=== PATIENT | female | born 1985 | race African-American/Black ===

== ENCOUNTER 2016-09-22 10:36 | Day surgery (SDC) | payer BC, OTHER ==
[~2016-09-22] VITALS: Ht 160 cm; Wt 104.3 kg
[~2016-09-22 10:36] MED LIST: ENDOCET 5-3251 EACH PO; IBUPROFEN800 MG PO; ONE DAILY FOR1 EAC1 PO; PRENATAL TABLE1 EAC3 PO; PROZAC20 MG PO; YASMIN,OCELL1 TABLET PO; YAZ 28 TABLET1 EACH PO
[2016-09-22 11:00] VITALS: BP 129/66
[2016-09-22 11:27] LABS: HEMATOCRIT 32.9 % (36.0-46.0); MCH 24.8 PG (29.0-34.0); MCHC 31.3 G/DL (30.0-36.0); MCV 79.1 FL (83-99); MEAN PLAT.VOLUME 9.5 uM^3 (9.5-12.4); PLATELET COUNT 366 K/uL (156-360); RBC DIS.WIDTH-CV 16.7 % (11.8-14.6); RED BLOOD COUNT 4.16 M/uL (3.80-5.20); WHITE BLOOD COUNT 6.2 K/uL (4.1-10.2)
[2016-09-22 12:03] LABS: EOSINOPHIL (%) 0.8 % (0-5); EOSINOPHIL COUNT 0.1 K/uL (0-0.3); IMMATURE GRANULOCYTE (%) 0.2 % (0.0-0.7); LYMPHOCYTE COUNT 2.2 K/uL (1.0-2.8); MONOCYTE (%) 7.9 % (3-12); MONOCYTE COUNT 0.5 K/uL (0-0.8); NEUTROPHIL COUNT 3.4 K/uL (1.8-6.4)
[2016-09-22] MEDS ORDERED: NORCO 5/3251 TABLET PO (13:55)
[2016-09-22 15:05] VITALS: BP 125/77
[2016-09-22 15:56] VITALS: BP 127/75
== END 2016-09-22 16:01 | disposition home or self-care (01) ==
LOC: SDC 10:36
PROVIDERS: Obstetrics & Gynecology
PROC: 0UDB8ZX Extraction of Endometrium, Via Natural or Artificial Opening Endoscopic, Diagnostic (ICD-10-PCS; principal; 2016-09-22)
PROC: 0UB98ZZ Excision of Uterus, Via Natural or Artificial Opening Endoscopic (ICD-10-PCS; principal; 2016-09-22)
DX: N93.8 Other specified abnormal uterine and vaginal bleeding (principal); N84.0 Polyp of corpus uteri; Z87.42 Personal history of other diseases of the female genital tract; E66.01 Morbid (severe) obesity due to excess calories; Z68.43 Body mass index [BMI] 50.0-59.9, adult
CPT/HCPCS: 84702; 85025; 88305; J0131; J0330; J1100; J1885; J2250; J2405; J2765; J3010

== ENCOUNTER 2017-02-14 22:15 | Emergency (ER) | payer BC, OTHER ==
[~2017-02-14] VITALS: Ht 160 cm; Wt 118.8 kg
[~2017-02-14 22:15] MED LIST changes: +NORCO 5/3251 TABLET PO
[2017-02-14 22:20] VITALS: BP 164/78
[2017-02-14] MEDS ORDERED: AMOXICILLIN500 MG PO (22:55)
== END 2017-02-14 23:14 | disposition home or self-care (01) ==
LOC: EME 22:15
DX: O99.89 Other specified diseases and conditions complicating pregnancy, childbirth and the puerperium (principal); K08.89 Other specified disorders of teeth and supporting structures; Z3A.12 12 weeks gestation of pregnancy
CPT/HCPCS: 99281; 99284

== ENCOUNTER 2017-08-11 06:38 | Inpatient (IN) | payer OTHER ==
[~2017-08-11] VITALS: Ht 160 cm; Wt 139.2 kg
[2017-08-11] VITALS (8 sets, daily range): BP systolic 121–143; BP diastolic 57–90
[~2017-08-11 06:38] MED LIST changes: +AMOXICILLIN500 MG PO; +ASPIR 8181 M1 PO; +PRENATAL TABLE1 EACH PO; +VISTARIL25 MG PO
[2017-08-11 09:37] LABS: HEMATOCRIT 32.8 % (36.0-46.0); HEMOGLOBIN 10.5 G/DL (11.9-15.5); MCH 26.5 PG (29.0-34.0); MCV 82.8 FL (83-99); PLATELET COUNT 205 K/uL (156-360); RBC DIS.WIDTH-CV 14.6 % (11.8-14.6); RBC DIS.WIDTH-SD 44.2 % (39-53); RED BLOOD COUNT 3.96 M/uL (3.80-5.20); WHITE BLOOD COUNT 6.7 K/uL (4.1-10.2)
[2017-08-12 03:13] VITALS: BP 114/64
[2017-08-12 07:50] LABS: BASOPHIL (%) 0.4 % (0-1); EOSINOPHIL (%) 0.9 % (0-5); EOSINOPHIL COUNT 0.1 K/uL (0-0.3); HEMATOCRIT 31.8 % (36.0-46.0); HEMOGLOBIN 9.8 G/DL (11.9-15.5); IMMATURE GRANULOCYTE (%) 0.3 % (0.0-0.7); LYMPHOCYTE (%) 23.1 % (15-42); LYMPHOCYTE COUNT 1.7 K/uL (1.0-2.8); MCH 25.9 PG (29.0-34.0); MCHC 30.8 G/DL (30.0-36.0); MCV 84.1 FL (83-99); MONOCYTE COUNT 0.8 K/uL (0-0.8); NEUTROPHIL (%) 65.3 % (45-76); NEUTROPHIL COUNT 4.9 K/uL (1.8-6.4); PLATELET COUNT 225 K/uL (156-360); RBC DIS.WIDTH-CV 14.7 % (11.8-14.6); RBC DIS.WIDTH-SD 45.1 % (39-53); RED BLOOD COUNT 3.78 M/uL (3.80-5.20); WHITE BLOOD COUNT 7.5 K/uL (4.1-10.2)
[2017-08-12 19:18] VITALS: BP 124/87
[2017-08-12 22:31] VITALS: BP 129/67
[2017-08-13 02:43] VITALS: BP 125/67
[2017-08-13 07:51] VITALS: BP 138/84
[2017-08-13 09:30] VITALS: BP 136/86
[2017-08-13 11:21] VITALS: BP 142/86
[2017-08-13 15:03] VITALS: BP 138/79
[2017-08-14 07:13] VITALS: BP 128/66
[2017-08-14 10:42] VITALS: BP 146/77
[2017-08-14] MEDS ORDERED: IBUPROFEN800 MG PO (13:54)
[2017-08-14] MEDS ORDERED: ENDOCET 5-3251 EACH PO (13:54)
[2017-08-14] MEDS ORDERED: FERROUS SULFAT325 MG PO (13:54)
[2017-08-15] MEDS ORDERED: REGLAN10 MG PO (12:10)
[2017-08-15] MEDS ORDERED: FIORICET 50-301 EAC1 PO (12:10)
== END 2017-08-14 15:40 | disposition home or self-care (01) | DRG 765 ==
LOC: 2WEST 06:38 → 2SOUTH 08:14 → 2WEST 08-14 15:40
PROVIDERS: Obstetrics & Gynecology
PROC: 10D00Z1 Extraction of Products of Conception, Low, Open Approach (ICD-10-PCS; principal; 2017-08-11)
PROC: 0UB70ZZ Excision of Bilateral Fallopian Tubes, Open Approach (ICD-10-PCS; principal; 2017-08-11)
DX: O30.043 Twin pregnancy, dichorionic/diamniotic, third trimester (principal); O32.1XX1 Maternal care for breech presentation, fetus 1; O32.1XX2 Maternal care for breech presentation, fetus 2; O34.211 Maternal care for low transverse scar from previous cesarean delivery; O99.02 Anemia complicating childbirth; D62 Acute posthemorrhagic anemia; D50.9 Iron deficiency anemia, unspecified; O99.214 Obesity complicating childbirth; E66.01 Morbid (severe) obesity due to excess calories; Z68.41 Body mass index [BMI] 40.0-44.9, adult; Z30.2 Encounter for sterilization; Z37.2 Twins, both liveborn; Z3A.37 37 weeks gestation of pregnancy; Z80.1 Family history of malignant neoplasm of trachea, bronchus and lung; Z81.8 Family history of other mental and behavioral disorders; Z82.49 Family history of ischemic heart disease and other diseases of the circulatory system; Z83.3 Family history of diabetes mellitus
CPT/HCPCS: 85025; 85027; 86850; 86900; 86901; 88307; J0690; J2274; J7120

== ENCOUNTER 2017-08-15 09:44 | Emergency (ER) | payer BC, OTHER ==
[~2017-08-15] VITALS: Ht 160 cm; Wt 138.8 kg
[~2017-08-15 09:44] MED LIST changes: +FERROUS SULFAT325 MG PO
[2017-08-15 10:50] LABS: HEMATOCRIT 28.6 % (36.0-46.0); HEMOGLOBIN 9.1 G/DL (11.9-15.5); MCH 26.9 PG (29.0-34.0); MCHC 31.8 G/DL (30.0-36.0); MCV 84.6 FL (83-99); NRBC (%) 0.3 /100 WBC (0-0); PLATELET COUNT 221 K/uL (156-360); RBC DIS.WIDTH-CV 14.9 % (11.8-14.6); RBC DIS.WIDTH-SD 45.2 % (39-53); RED BLOOD COUNT 3.38 M/uL (3.80-5.20); WHITE BLOOD COUNT 7.2 K/uL (4.1-10.2)
[2017-08-15 11:02] LABS: CHLORIDE 112 mEq/L (99-109); POTASSIUM 3.9 mEq/L (3.7-5.4); SODIUM 139 mEq/L (136-147)
[2017-08-15 11:04] LABS: GLUCOSE 84 mg/dL (70-99); TOTAL PROTEIN 5.7 g/dL (6.4-8.3)
[2017-08-15 11:06] LABS: TOTAL BILIRUBIN 0.3 mg/dL (0.0-1.0)
[2017-08-15 11:07] LABS: ALKALINE PHOSPHATASE 103 IU/L (3-129)
[2017-08-15 11:08] LABS: CREATININE 0.6 mg/dL (0.6-1.3); GFR ESTIMATE (CALCULATED) > 59 mL/min/
[2017-08-15 11:09] LABS: AST (GOT) 25 IU/L (2-34); UREA NITROGEN (BUN) 11 mg/dL (9-23)
[2017-08-15 11:11] LABS: ALT (GPT) 25 IU/L (3-49)
[2017-08-15] MEDS ORDERED: FIORICET 50-301 EAC1 PO (12:10)
[2017-08-15] MEDS ORDERED: REGLAN10 MG PO (12:10)
[2017-08-15 13:25] VITALS: BP 146/94
== END 2017-08-15 13:26 | disposition home or self-care (01) ==
LOC: EME 09:44
PROVIDERS: Nurse Practitioner Family
DX: O89.4 Spinal and epidural anesthesia-induced headache during the puerperium (principal)
CPT/HCPCS: 80053; 81003; 85027; 99281; 99284; J1885; J2765; J3030; J7030